=== PATIENT | female | born 1945 | race Hispanic/Latino ===

== ENCOUNTER 2019-02-12 23:00 | Emergency (ER) | payer OTHER, MEDICARE ==
[2019-02-12] MEDS ORDERED: ACETAMINOPHEN 325 MG TAB ONE (23:31)
== END 2019-02-13 01:00 | disposition home or self-care (01) ==
LOC: EDH 23:00
DX: S46.811A Strain of other muscles, fascia and tendons at shoulder and upper arm level, right arm, initial encounter (principal); S00.83XA Contusion of other part of head, initial encounter; E78.5 Hyperlipidemia, unspecified; W01.0XXA Fall on same level from slipping, tripping and stumbling without subsequent striking against object, initial encounter; Y93.01 Activity, walking, marching and hiking; Y92.89 Other specified places as the place of occurrence of the external cause; Y99.8 Other external cause status
CPT/HCPCS: 70450

== ENCOUNTER → 2022-09-12 | Outpatient (CLI) | payer OTHER, MEDICARE | END | disposition home or self-care (01) | LOC: RAH 11:41 | PROVIDERS: ATTEND Internal Medicine | DX: S09.90XA Unspecified injury of head, initial encounter (principal); X58.XXXA Exposure to other specified factors, initial encounter; Y93.89 Activity, other specified; Y92.89 Other specified places as the place of occurrence of the external cause; Y99.8 Other external cause status | CPT/HCPCS: 70450 ==

== ENCOUNTER → 2023-01-31 | Outpatient (CLI) | payer OTHER, MEDICARE | END | disposition home or self-care (01) | LOC: RAH 11:40 | PROVIDERS: ATTEND Internal Medicine | DX: I65.22 Occlusion and stenosis of left carotid artery (principal); I10 Essential (primary) hypertension; R20.0 Anesthesia of skin; R42 Dizziness and giddiness; E78.5 Hyperlipidemia, unspecified | CPT/HCPCS: 93880 ==

== ENCOUNTER → 2023-03-15 | Outpatient (CLI) | payer OTHER, MEDICARE | END | disposition home or self-care (01) | LOC: RAH 10:18 | PROVIDERS: ATTEND Internal Medicine | DX: Z00.00 Encounter for general adult medical examination without abnormal findings (principal); G44.329 Chronic post-traumatic headache, not intractable; I10 Essential (primary) hypertension; R29.6 Repeated falls; R26.9 Unspecified abnormalities of gait and mobility; R20.0 Anesthesia of skin; I25.10 Atherosclerotic heart disease of native coronary artery without angina pectoris | CPT/HCPCS: 70551 ==

== ENCOUNTER 2023-06-17 18:52 | Emergency (ER) | payer OTHER, MEDICARE ==
[~2023-06-17] VITALS: Ht 147.3 cm; Wt 64.4 kg
[2023-06-17 20:01] VITALS: BP 155/77; PULSE 68; RESP 20
[2023-06-17] MEDS ORDERED: ACETAMINOPHEN WITH CODEINE 1 TAB TAB PO ONE (21:30)
[2023-06-17] MEDS ORDERED: TRAM50TA4 PO (21:59)
== END 2023-06-17 22:04 | disposition home or self-care (01) ==
LOC: EDH 18:52
DX: S69.91XA Unspecified injury of right wrist, hand and finger(s), initial encounter (principal); M19.90 Unspecified osteoarthritis, unspecified site; E78.00 Pure hypercholesterolemia, unspecified; I10 Essential (primary) hypertension; X50.0XXA Overexertion from strenuous movement or load, initial encounter; Y93.89 Activity, other specified; Y92.89 Other specified places as the place of occurrence of the external cause; Y99.8 Other external cause status
CPT/HCPCS: 73110

== ENCOUNTER → 2023-07-10 | Outpatient (CLI) | payer OTHER, MEDICARE ==
[~2023-07-10] MED LIST: TRAM50TA4 PO
== END | disposition home or self-care (01) ==
LOC: SHCH 14:08
PROVIDERS: ATTEND Internal Medicine Cardiovascular Disease
DX: I08.3 Combined rheumatic disorders of mitral, aortic and tricuspid valves (principal); I11.9 Hypertensive heart disease without heart failure; R94.31 Abnormal electrocardiogram [ECG] [EKG]
CPT/HCPCS: 93306

== ENCOUNTER → 2024-12-31 | Outpatient (CLI) | payer MEDICARE, OTHER | END | disposition home or self-care (01) | LOC: SHCH 10:03 | PROVIDERS: ATTEND Internal Medicine Cardiovascular Disease | DX: R09.89 Other specified symptoms and signs involving the circulatory and respiratory systems (principal) | CPT/HCPCS: 93880 ==

== ENCOUNTER → 2025-10-10 | Outpatient (CLI) | payer OTHER ==
--- NOTE | 2025-10-10 23:03 | HMCIMG ---
VENOUS DOPPLER ULTRASOUND BILATERAL LOWER EXTREMITIES CLINICAL HISTORY: Bilateral lower extremity edema. COMPARISON: None available. TECHNIQUE: Real-time grayscale, color Doppler, and spectral Doppler evaluation of the deep venous system of both lower extremities was performed. Compression maneuvers and augmentation were utilized where appropriate. FINDINGS: RIGHT LOWER EXTREMITY: The common femoral vein, great saphenous vein, femoral vein (proximal, mid, and distal segments), popliteal vein and posterior tibial veins are patent. The veins demonstrate normal compressibility. Color Doppler imaging shows normal venous flow with appropriate phasicity and augmentation. No intraluminal thrombus is identified. LEFT LOWER EXTREMITY: The common femoral vein, great saphenous vein, femoral vein (proximal, mid, and distal segments), popliteal vein and posterior tibial veins are patent. The veins demonstrate normal compressibility. Color Doppler imaging shows normal venous flow with appropriate phasicity and augmentation. No intraluminal thrombus is identified. SOFT TISSUES: No sonographic evidence of focal fluid collection is identified. IMPRESSION: 1. No sonographic evidence of deep venous thrombosis in the bilateral lower extremities. RECOMMENDATIONS: If clinical suspicion for deep venous thrombosis remains high or symptoms persist or worsen, ACR Appropriateness Criteria support repeat lower extremity venous duplex ultrasound in 57 days. Consider evaluation for non-thrombotic causes of bilateral lower extremity edema based on clinical correlation. /Katerina
--- NOTE | 2025-10-10 23:06 | HMCIMG ---
EXAM: US Arterial Duplex, Bilateral Lower Extremities. HISTORY: Edema and pain in bilateral lower extremities. COMPARISON: None available. TECHNIQUE: Grayscale, color Doppler, and spectral Doppler evaluation of the arterial system of the bilateral lower extremities was performed from the common femoral arteries through the distal tibial and dorsalis pedis arteries. Peak systolic velocities and waveform morphologies were assessed. FINDINGS: Right Lower Extremity Arterial System: The right common femoral artery demonstrates a biphasic waveform with a peak systolic velocity of approximately 123 cm/sec. The superficial femoral artery demonstrates biphasic waveforms throughout its proximal, mid, and distal segments with peak systolic velocities of approximately 107 cm/sec, 102 cm/sec, and 115 cm/sec, respectively. The proximal popliteal artery demonstrates a biphasic waveform with a peak systolic velocity of approximately 75 cm/sec, while the distal popliteal artery demonstrates a preserved triphasic waveform with a peak systolic velocity of approximately 148 cm/sec. The posterior tibial artery demonstrates a triphasic waveform with a peak systolic velocity of approximately 95 cm/sec. The anterior tibial artery demonstrates a biphasic waveform with a peak systolic velocity of approximately 71 cm/sec. The dorsalis pedis artery demonstrates a triphasic waveform with a peak systolic velocity of approximately 126 cm/sec. No focal velocity elevations are identified to suggest a hemodynamically significant stenosis. Diffuse arterial wall irregularity is present, compatible with atherosclerotic disease. Left Lower Extremity Arterial System: The common femoral artery demonstrates an elevated peak systolic velocity of approximately 155 cm/s with biphasic waveform. The superficial femoral artery demonstrates approximately 102 cm/sec proximally, 104 cm/sec in the mid segment, and 101 cm/sec distally, with biphasic waveforms. The popliteal artery demonstrates velocities of approximately 112 cm/sec proximally and 59 cm/sec distally, maintaining biphasic waveforms. The posterior tibial artery demonstrates a peak systolic velocity of approximately 73 cm/s with biphasic distal waveform. The anterior tibial artery demonstrates a peak systolic velocity of approximately 102 cm/s with triphasic waveform. The dorsalis pedis artery demonstrates a peak systolic velocity of approximately 79 cm/s. No focal velocity elevations are identified to suggest a hemodynamically significant stenosis. Diffuse arterial wall irregularity is present, compatible with atherosclerotic disease. IMPRESSION: 1. No sonographic evidence of hemodynamically significant arterial stenosis or occlusion in the bilateral lower extremities. 2. Abnormal arterial waveforms, predominantly biphasic, consistent with diffuse multilevel peripheral arterial disease without critical flow limitation RECOMMENDATIONS Per ACR Appropriateness Criteria, no additional cross-sectional arterial imaging is indicated at this time in the absence of rest pain, tissue loss, or other features of critical limb ischemia. Correlation with ankle-brachial indices may be considered for physiologic assessment and baseline documentation. Continued clinical surveillance and aggressive medical management of peripheral arterial disease risk factors are recommended. /[place]
== END | disposition home or self-care (01) ==
LOC: RAH 07:20
PROVIDERS: ATTEND Family Medicine
DX: I70.203 Unspecified atherosclerosis of native arteries of extremities, bilateral legs (principal); R60.0 Localized edema
CPT/HCPCS: 93925; 93970